=== PATIENT | male | born 1950 | race Two or more races ===

== ENCOUNTER → 2017-10-22 | Outpatient (CLI) | payer MEDICARE, BC ==
[~2017-10-22] MED LIST: AMLOD; BAYER; GLIPIZIDE; IOHEXOL-300 100 ML BOTTLE ONE; METFORMIN; OMEPRAZOLE; VALSAR
== END | disposition home or self-care (01) ==
LOC: CT 09:46
PROVIDERS: ATTEND Internal Medicine Gastroenterology
DX: K76.0 Fatty (change of) liver, not elsewhere classified (principal); N40.0 Benign prostatic hyperplasia without lower urinary tract symptoms
CPT/HCPCS: 74177; Q9967

== ENCOUNTER → 2020-08-08 | Outpatient (CLI) | payer MEDICARE, BC ==
[~2020-08-08] VITALS: Ht 172.7 cm; Wt 98.0 kg
[~2020-08-08] MED LIST changes: +EZET10TA13 PO; -IOHEXOL-300 100 ML BOTTLE ONE; +PRAV20TA57 PO
[2020-08-08 10:27] VITALS: BP 140/60
== END | disposition home or self-care (01) ==
LOC: LAB 09:34 → EDSTATUS 10:01
PROVIDERS: ATTEND Internal Medicine Gastroenterology
DX: R05 Cough (principal); Z20.828 Contact with and (suspected) exposure to other viral communicable diseases
CPT/HCPCS: 87426

== ENCOUNTER → 2020-08-09 | Day surgery (SDC) | payer MEDICARE, BC ==
[~2020-08-09] MED LIST changes: +ACETAMINOPHEN 325MG TABLET PO PRN; +ASPIRIN/SOD BICARB/CITRIC ACID 324MG TAB EFF ONE; +ATROPINE SULFATE 1MG/10ML SYR IV PRN; +FENTANYL CITRATE/PF 50MCG/ML 2ML VIAL ONE; +HEPARIN SODIUM 1,000 UNIT/1ML VIAL IV ONE; +IODIXANOL 320MG/ML 100 ML BOTTLE IV ONE; +LIDOCAINE HCL 1% 20ML VIAL (Pyxis) INJ ONE; +MIDAZOLAM HCL 2 MG/2 ML VIAL ONE; +MORPHINE SULFATE 2 MG/ML CPJ (NOT FOR IM USE) IV PRN; +ONDANSETRON HCL 4MG/2ML INJ IV PRN
== END | disposition home or self-care (01) ==
LOC: CCL 06:48
PROVIDERS: ATTEND Specialist
DX: I25.10 Atherosclerotic heart disease of native coronary artery without angina pectoris (principal); Z88.0 Allergy status to penicillin; Z88.8 Allergy status to other drugs, medicaments and biological substances; Z88.5 Allergy status to narcotic agent; Z79.899 Other long term (current) drug therapy
CPT/HCPCS: 82962; 93458; C1769; C1887; C1893; J1644; J2250; J3010; J3490; Q9967

== ENCOUNTER 2021-12-07 13:19 | Emergency (ER) | payer MEDICARE, BC ==
[~2021-12-07] VITALS: Ht 172.7 cm; Wt 75.0 kg
[~2021-12-07 13:19] MED LIST changes: -ACETAMINOPHEN 325MG TABLET PO PRN; -ASPIRIN/SOD BICARB/CITRIC ACID 324MG TAB EFF ONE; -ATROPINE SULFATE 1MG/10ML SYR IV PRN; -FENTANYL CITRATE/PF 50MCG/ML 2ML VIAL ONE; -GLIPIZIDE; -HEPARIN SODIUM 1,000 UNIT/1ML VIAL IV ONE; -IODIXANOL 320MG/ML 100 ML BOTTLE IV ONE; -LIDOCAINE HCL 1% 20ML VIAL (Pyxis) INJ ONE; -MIDAZOLAM HCL 2 MG/2 ML VIAL ONE; -MORPHINE SULFATE 2 MG/ML CPJ (NOT FOR IM USE) IV PRN; -ONDANSETRON HCL 4MG/2ML INJ IV PRN
[2021-12-07] MEDS ORDERED: KETOROLAC 60MG/2ML VIAL IM STA (15:44)
[2021-12-07 16:28] LABS: HEMATOCRIT. 37.5 % (42.0-52.0); HEMOGLOBIN. 12.9 g/dL (14.0-18.0); MEAN CORPUSCULAR HEMOGLOBIN 29.3 pg (28.0-32.0); MEAN CORPUSCULAR VOLUME 85.3 fL (80.0-94.0); MEAN PLATELET VOLUME 8.2 fl (7.4-10.4); PLATELET 173 x1000/uL (130-400); RED CELL DISTRIBUTION WIDTH 13.4 % (11.6-14.6)
[2021-12-07 16:37] LABS: CHLORIDE 106 mEq/L (98-107)
[2021-12-07 17:09] LABS: PLATELET ESTIMATE NORMAL
[2021-12-07] MEDS ORDERED: PSEU-207 MT (19:25)
[2021-12-07] MEDS ORDERED: MELO-105 MT (19:25)
[2021-12-07] MEDS ORDERED: MAGNESIUM CITRATE 300ML SOLUTION PO ONE (19:30)
[2021-12-07] MEDS ORDERED: KETOROLAC 30MG/ML VIAL IM NR (19:30)
[2021-12-07 19:33] VITALS: BP 157/69
== END 2021-12-07 19:36 | disposition home or self-care (01) ==
LOC: ER 13:19
DX: M19.90 Unspecified osteoarthritis, unspecified site (principal); Z20.822 Contact with and (suspected) exposure to COVID-19; E11.9 Type 2 diabetes mellitus without complications; I10 Essential (primary) hypertension; Z85.6 Personal history of leukemia; Z88.0 Allergy status to penicillin
CPT/HCPCS: 36415; 73560; 80053; 85025; 96372; 99284; C9803; J1885; U0003; U0005